=== PATIENT | female | born 1995 | race Caucasian/White ===

== ENCOUNTER → 2019-04-27 | Outpatient (REF) | payer OTHER ==
[2019-04-28 13:48] LABS: CHLAMYDIA DNA AMPLIFICATION NEGATIVE (NEGATIVE); GC DNA AMPLIFICATION NEGATIVE (NEGATIVE)
== END ==
LOC: M SFHCLERA 12:47
PROVIDERS: ATTEND Nurse Practitioner Family
DX: R30.0 Dysuria (principal)
CPT/HCPCS: 81002; 81025; 87070; 87086; 87661; G0463

== ENCOUNTER → 2019-07-27 | Outpatient (REF) | payer OTHER ==
[2019-07-27 18:09] LABS: FREE T4 1.17 NG/DL (0.76-1.46); THYROID STIMULATING HORMONE 2.24 uIU/ML (0.358-3.740)
== END ==
LOC: M LABDRAW1 17:08
PROVIDERS: ATTEND Nurse Practitioner Family
DX: E06.3 Autoimmune thyroiditis (principal)